=== PATIENT | female | born 1995 | race Two or more races ===

== ENCOUNTER → 2022-05-21 | Emergency (ER) | payer OTHER ==
[~2022-05-21] VITALS: Ht 160 cm; Wt 70.3 kg
[~2022-05-21] MED LIST: ATABEX PRENATAL1 TAB
== END | disposition home or self-care (01) ==
LOC: ER 08:51
DX: B34.9 Viral infection, unspecified (principal); Z20.822 Contact with and (suspected) exposure to COVID-19

== ENCOUNTER 2022-08-20 10:15 | Emergency (ER) | payer OTHER ==
[~2022-08-20] VITALS: Ht 160 cm; Wt 73.0 kg
== END 2022-08-20 13:54 | disposition home or self-care (01) ==
LOC: ER 10:15
DX: K64.4 Residual hemorrhoidal skin tags (principal)

== ENCOUNTER 2024-05-22 13:29 | Emergency (ER) | payer OTHER ==
[~2024-05-22] VITALS: Ht 160 cm; Wt 63.5 kg
[2024-05-22 16:12] LABS: HEMATOCRIT 37.6 % (36.0-45.00); HEMOGLOBIN 12.8 g/dL (12.0-15.00); MEAN CELL VOLUME 93.5 fL (80.00-100.00); MEAN CORPUSCULAR HEMOGLOBIN 31.7 pg (27.00-32.0); PLATELET COUNT 298 K/uL (150-450); RED BLOOD COUNT 4.02 M/uL (4.00-6.00); RED CELL DISTRIBUTION WIDTH 12.4 % (11.5-14.5)
[2024-05-22 16:23] LABS: PH,URINE 5.5 (5.0-8.0); URINE APPEARANCE Clear; URINE BILIRRUBIN Negative (NEGATIVE); URINE BLOOD Negative; URINE COLOR Yellow; URINE GLUCOSE Negative (NEGATIVE); URINE KETONE Trace (NEGATIVE); URINE LEUKOCYTE Negative; URINE NITRATE Negative; URINE PROTEIN Negative (NEGATIVE)
[2024-05-22 16:27] LABS: URINE BACTERIA 4348.5 uL (0.0-1933); URINE EPITHELIAL CELLS 11.7 uL (0.0-38.8); URINE RBC 2.5 uL (0.0-20.8); URINE WBC 13.2 uL (0.0-23.2)
[2024-05-22 17:41] LABS: URINE CAST 1.03 uL (0.0-1.40)
== END 2024-05-22 18:10 | disposition home or self-care (01) ==
LOC: ER 13:31
PROVIDERS: General Practice
DX: B34.9 Viral infection, unspecified (principal); Z20.822 Contact with and (suspected) exposure to COVID-19

== ENCOUNTER 2024-05-30 20:50 | Emergency (ER) | payer OTHER ==
[~2024-05-30] VITALS: Ht 160 cm; Wt 63.5 kg
[2024-05-30] MEDS ORDERED: FAMOTIDINE/PF 20 MG in 0.9 % SODIUM CHLORIDE 8 ML IV PUSH STA (21:55)
[2024-05-30] MEDS ORDERED: ONDANSETRON HCL 2 MG/ML VIAL IV ONE (22:00)
[2024-05-30] MEDS ORDERED: DIPHENOXYLATE HCL/ATROPINE 1 UDTAB TABLET PO ONE (22:00)
[2024-05-30] MEDS ORDERED: 0.9 % SODIUM CHLORIDE 1,000 ML IV SCH (22:00)
[2024-05-30] MEDS ORDERED: KETOROLAC TROMETHAMINE 30 MG VIAL IV ONE (22:00)
[2024-05-30] MEDS ORDERED: KETOROLAC TROMETHAMINE 30 MG VIAL ONE (22:04)
[2024-05-30] MEDS ORDERED: ONDANSETRON HCL 2 MG/ML VIAL ONE (22:05)
[2024-05-30] MEDS ORDERED: FAMOTIDINE/PF 20 MG/2 ML VIAL ONE (22:05)
[2024-05-30 22:37] LABS: HEMOGLOBIN 12.4 g/dL (12.0-15.00); MEAN CELL VOLUME 92.6 fL (80.00-100.00); MEAN CORPUSCULAR HEMOGLOBIN 31.9 pg (27.00-32.0); MEAN CORPUSCULAR HGB CONC 34.4 g/dl (32.0-36.0); PLATELET COUNT 328 K/uL (150-450); RED BLOOD COUNT 3.88 M/uL (4.00-6.00); RED CELL DISTRIBUTION WIDTH 12.5 % (11.5-14.5)
[2024-05-30 23:01] LABS: ALBUMIN 3.2 gm/dL (3.4-5.0); BILIRUBIN TOTAL 0.22 mg/dL (0.3-1.2); CREATININE SERUM 0.58 mg/dL (0.55-1.02); GFR 124.7; GLOBULINA 4.5 G/DL (2.4-3.5); POTASSIUM 3.51 mEq/L (3.5-5.1); TOTAL PROTEIN 7.7 gm/dL (6.4-8.2)
[2024-05-30] MEDS ORDERED: INTESTINEX680 M1 PO (23:26)
[2024-05-30] MEDS ORDERED: PEPCID AC20 MG PO (23:26)
[2024-05-30] MEDS ORDERED: LEVSIN/SL0.125 MG SL (23:26)
== END 2024-05-31 00:06 | disposition home or self-care (01) ==
LOC: ER 20:53
PROVIDERS: General Practice
DX: R19.7 Diarrhea, unspecified (principal)